=== PATIENT | male | born 1995 ===

== ENCOUNTER 2017-05-20 09:43 | Emergency (ER) | payer MEDICAID ==
[2017-05-20 09:52] VITALS: BP 118/69; PULSE 81; RESP 18; TEMP 97.8; O2SAT 99
--- NOTE | 2017-05-20 10:25 | ED PDOC ---
HPI: General Adult Time Seen by Provider: 05/20/17 10:06 Chief Complaint (Nursing): Trauma Chief Complaint (Provider): Head injury History Per: Patient History/Exam Limitations: no limitations Onset/Duration Of Symptoms: Days (Th) Current Symptoms Are (Timing): Still Present Additional Complaint(s): Pt. slipped accidentally and hit a pole with the right side of his head. No LOC. No dizziness, numbness, tingles, weakness, frontal face pain. Pain to the R head behind the ear. Hearing is fine. Noted a few blood tinged sputum episodes. No nausea, vomit. No pain elsewhere. Past Medical History Reviewed: Nursing Documentation, Vital Signs Vital Signs: Last Vital Signs Temp 97.8 F 05/20/17 09:51 Pulse 81 05/20/17 09:51 Resp 18 05/20/17 09:51 BP 118/69 05/20/17 09:51 Pulse Ox 99 05/20/17 12:37 - Medical History PMH: No Chronic Diseases - Surgical History Surgical History: No Surg Hx - Family History Family History: States: No Known Family Hx - Living Arrangements Living Arrangements: With Family - Social History Current smoker - smoking cessation education provided: No Alcohol: None Drugs: Denies - Allergies Allergies/Adverse Reactions: Allergies Allergy/AdvReac Type Severity Reaction Status Date / Time No Known Allergies Allergy Verified 05/20/17 10:20 Review of Systems ROS Statement: Except As Marked, All Systems Reviewed And Found Negative ENT: Positive for: Ear Pain (behind ear) Respiratory: Positive for: Hemoptysis (blood tinged sputum), Sputum Neurological: Positive for: Headache Physical Exam - Reviewed Nursing Documentation Reviewed: Yes Vital Signs Reviewed: Yes - Physical Exam Appears: Positive for: Non-toxic, No Acute Distress Head Exam: Positive for: NORMOCEPHALIC. Negative for: ATRAUMATIC (R mastoid and area behind ear with echymosis and tenderness), NORMAL INSPECTION Skin: Positive for: Normal Color, Warm, DRY Eye Exam: Positive for: EOMI, Normal appearance, PERRL ENT: Positive for: TM Is/Are (R TM with blood tinge and possible perfortation), Hearing Is (intact). Negative for: Nasal Congestion, Pharyngeal Erythema, Tonsillar Exudate Neck: Positive for: Normal, Painless ROM Cardiovascular/Chest: Positive for: Regular Rate, Rhythm Respiratory: Positive for: CNT, Normal Breath Sounds Gastrointestinal/Abdominal: Positive for: Normal Exam, Bowel Sounds, Soft. Negative for: Tenderness Back: Positive for: Normal Inspection. Negative for: L CVA Tenderness, R CVA Tenderness Extremity: Positive for: Normal ROM. Negative for: Tenderness, Pedal Edema Neurologic/Psych: Positive for: Alert, registered appraiser II-XII, Oriented. Negative for: Motor/Sensory Deficits, Aphasia, Facial Droop - ECG O2 Sat by Pulse Oximetry: 99 Pulse Ox Interpretation: Normal - Progress ED Course And Treament: IMPRESSION: Findings are most compatible with acute right mastoiditis with presumable cellulitis in the post auricular soft tissues. Apparent 9 mm low-attenuation area in the deep superior post auricular soft tissues is nonspecific and not completely characterized on this noncontrast CT examination however developing phlegmon/abscess is a consideration in this clinical setting. 1249: Spoke with Dr. Aguila. Aware of presentation and findings. States nothing to do for ear perf from trauma. Fu outpt. No antibiotics. Pt. stable. Eating. Laughing in room. AAOx3. Disposition - Clinical Impression Clinical Impression: Head injury, Ear drum perforation - Patient ED Disposition Is Patient to be Admitted: No Counseled Patient/Family Regarding: Studies Performed, Diagnosis, Need For Followup - Disposition Referrals: [facility] [Outside] - 05/23/17 Darryl Aguila MD [Staff Provider] - 05/23/17 Disposition: Routine/Home Disposition Time: 12:51 Condition: STABLE Additional Instructions: Return if not better in 3 days. Do not get water into ear for 1 month. See the specialist without fail. Instructions: Ruptured Eardrum (ED), Head Injury (ED) Forms: [employer] ([place]), [facility] ED School/Work Excuse
--- NOTE | 2017-05-20 11:43 | CT ---
PROCEDURE: CT HEAD WITHOUT CONTRAST. HISTORY: Headache COMPARISON: None available. TECHNIQUE: Axial computed tomography images were obtained through the head/brain without intravenous contrast. Radiation dose: Total exam DLP = 839.51 mGy-cm. This CT exam was performed using one or more of the following dose reduction techniques: Automated exposure control, adjustment of the mA and/or kV according to patient size, and/or use of iterative reconstruction technique. FINDINGS: HEMORRHAGE: No intracranial hemorrhage. BRAIN: Singh-white matter differentiation is preserved. There is no mass, mass effect or abnormal extra-axial fluid collection. There is no territorial infarction. VENTRICLES: The ventricles are normal in size, shape and configuration. There is a jyothi cisterna magna. CALVARIUM: There is no calvarial fracture or extracranial soft tissue swelling. PARANASAL SINUSES: Predominantly clear. MASTOID AIR CELLS: There is a small right mastoid effusion. No left mastoid effusion. OTHER FINDINGS: None. IMPRESSION: No acute intracranial abnormality.
--- NOTE | 2017-05-20 11:45 | CT ---
PROCEDURE: CT Cervical Spine without contrast HISTORY: Neck pain COMPARISON: None available. TECHNIQUE: Axial computed tomography images were obtained of the cervical spine without the use of intravenous contrast. Coronal and sagittal reformatted images were created and reviewed. Radiation dose: Total exam DLP = 481.09 mGy-cm. This CT exam was performed using one or more of the following dose reduction techniques: Automated exposure control, adjustment of the mA and/or kV according to patient size, and/or use of iterative reconstruction technique. FINDINGS: VERTEBRAE: There is straightening of the cervical spine with loss of normal cervical lordosis. Vertebral alignment is normal. Vertebral height is maintained. There is no acute fracture or traumatic anterior listhesis. The craniocervical junction is normal. The atlantoaxial joint is normal. DISCS/SPINAL CANAL/NEURAL FORAMINA: The disc heights are maintained. PARASPINAL SOFT TISSUES: No prevertebral soft tissue thickening. The paraspinous soft tissues are normal. OTHER FINDINGS: The lung apices are. IMPRESSION: Clear no acute fracture, traumatic anterior listhesis or disc herniation. Straightening of the cervical spine may be positional or related to muscle spasm.
--- NOTE | 2017-05-20 11:58 | CT ---
PROCEDURE: CT OF THE TEMPORAL BONES WITHOUT CONTRAST HISTORY: injury right ear and right mastoid COMPARISON: None available. TECHNIQUE: High resolution axial images of the temporal bones were obtained. Coronal and sagittal reformats were generated. Radiation dose: Total exam DLP = 557.00 mGy-cm. This CT exam was performed using one or more of the following dose reduction techniques: Automated exposure control, adjustment of the mA and/or kV according to patient size, and/or use of iterative reconstruction technique. FINDINGS: RIGHT TEMPORAL BONE: RIGHT MIDDLE EAR: Normal. RIGHT INNER EAR: Cochlea: Normal. Semicircular canals: Normal. RIGHT MASTOID AIR CELLS: There is moderate right mastoid effusion. No evidence of destruction of the inter mastoid septations or sclerosis in the mastoid bone. There is thickening and edema in the post auricular soft tissues overlying the mastoid bone. There is also an apparent 9 mm low-attenuation area in the deep superior post auricular soft tissues overlying the mastoid bone. RIGHT INTERNAL AUDITORY CANAL: Normal. RIGHT EXTERNAL AUDITORY CANAL: Normal. RIGHT VESTIBULAR AND COCHLEAR AQUEDUCT: Normal. OTHER FINDINGS: None. LEFT TEMPORAL BONE: LEFT MIDDLE EAR: Normal. LEFT INNER EAR: Cochlea: Normal. Semicircular canals: Normal. LEFT MASTOID AIR CELLS: Normal. LEFT INTERNAL AUDITORY CANAL: Normal. LEFT EXTERNAL AUDITORY CANAL: Grossly normal in appearance. There is cerumen in the deep external auditory canal. LEFT VESTIBULAR AND COCHLEAR AQUEDUCTS: Normal. OTHER FINDINGS: None. IMPRESSION: Findings are most compatible with acute right mastoiditis with presumable cellulitis in the post auricular soft tissues. Apparent 9 mm low-attenuation area in the deep superior post auricular soft tissues is nonspecific and not completely characterized on this noncontrast CT examination however developing phlegmon/abscess is a consideration in this clinical setting.
== END 2017-05-20 13:44 | disposition home or self-care (01) ==
LOC: H.ER 09:43
DX: S09.90XA Unspecified injury of head, initial encounter (principal); H72.91 Unspecified perforation of tympanic membrane, right ear; W22.8XXA Striking against or struck by other objects, initial encounter; Y93.9 Activity, unspecified